=== PATIENT | female | born 1980 | race Caucasian/White ===

== ENCOUNTER 2016-06-27 18:51 | Emergency (ER) | payer OTHER ==
[~2016-06-27 18:51] MED LIST: ANAPROX DS550 MG PO; AZO; BACTRIM DS TAB1 EAC2 PO; BACTRIM DS TABL1 TAB PO; BACTRIM DS1 TA1 PO; BCP; BENTYL20 MG PO; BRETHINE2.5 MG; CIPRO500 MG PO; COMPAZINE10 M PO; CYSTEX PLUS TA1 EACH PO; DETROL LA4 MG PO; DIAZEPAM5 M; DICLOFENAC SODI75 MG; ELMIRON100 MG PO; FLAGYL500 M1 PO; IBUPROFEN200 M2 PO; INDOCIN25 MG; KEFLEX500 MG PO; LEVAQUIN250 MG; LEVAQUIN250 MG PO; LEXAPRO10 MG; LEXAPRO10 MG PO; LORTAB 5/500 TA1 TAB PO; MACROBID 100 M100 M1 PO; MACROBID 100 M100 MG PO; MACRODANTIN100 M1 PO; MACRODANTIN25 MG; MACRODANTIN50 M2 PO; MAXALT MLT10 MG/TAB; NORCO 10/325 TA1 TAB PO; NORCO 5-325 TA1 EACH PO; NORCO 5/325 TAB1 TAB PO; ORTHO EVRA1 PATCH.WK; ORTHO TRI-7 DAYS X PO; ORTHO TRI-7 DAYSX 3 PO; OSTEO BI-FLEX1 EAC5 PO; OXYCODONE/APAP; PERCOCET 5-3251 EACH PO; PERCOCET 5/3251 TAB PO; PHENERGAN25 MG PO; PRENATAL PO; PRENATAL VITAMI1 TAB; PRENATAL1 TAB; PROCARDIA; PROCARDIA10 MG; PYRIDIUM100 M1 PO; PYRIDIUM100 M2 PO; PYRIDIUM100 MG; PYRIDIUM100 MG PO; PYRIDIUM200 M2 PO; PYRIDIUM200 MG PO; TOPICORT TP; TRAMADOL HCL50 MG; TRAMADOL HCL50 MG PO; TYLENOL W/CODEI1 TAB; ULTRAM50 M1 PO; ULTRAM50 MG; ULTRAM50 MG PO; VALIUM5 MG PO; VESICARE5 M1 PO; VITAMIN C500 M3 PO; VITAMIN D10000 UNI1 PO; VITAMIN E PO; VOLTAREN75 MG PO; [UNRECOGNIZED DRUG - OTHER] PO
[2016-06-27 19:59] LABS: BASO % 0.6 % (0-2); EOS % 0.6 % (0-7); HCT-HEMATOCRIT 36.1 % (34.0-49.0); HGB-HEMOGLOBIN 11.3 gm/dl (12.0-15.5); IMMATURE GRANULOCYTES ABSOLUTE 0.01 tho/cmm (0-0.03); IMMATURE GRANULOCYTES PERCENT 0.2 % (0-0.3); LYMPH % 28.2 % (20-45); LYMPH ABSOLUTE COUNT 1.9 tho/cmm (0.8-4.5); MCH (MEAN CORPUSCULAR HGB) 25.8 pg (28.0-32.0); MCHC MEAN CORPUSCULAR HGB CONC 31.3 % (32.0-36.0); MCV (MEAN CELL VOLUME) 82.4 fl (82.0-96.0); MEAN PLATELET VOLUME 8.4 cmc (9.4-12.4); MONO % 8.5 % (0-12); MONOCYTE ABSOLUTE COUNT 0.6 tho/cmm (0.0-1.2); NEUTROPHIL ABSOLUTE COUNT 4.1 tho/cmm (1.6-8.0); NEUTROPHIL-AUTOMATED 4.1 tho/cmm (1.6-8.0); NEUTROPHILS % 61.9 % (40-80); PLATELET COUNT 365 tho/cmm (150-450); RED BLOOD COUNT 4.38 mil/cmm (4.00-5.20); WHITE BLOOD COUNT 6.6 tho/cmm (4.0-10.0)
[2016-06-27 20:16] LABS: ALB/GLOB RATIO 1.1 (0.8-2.0); ALKALINE PHOSPHATASE 54 U/L (33-138); ALT/SGPT 17 U/L (12-78); ANION GAP 13 mmol/L (0-20); AST/SGOT 18 U/L (10-40); BILIRUBIN,TOTAL 0.3 mg/dl (0-1.5); BLOOD UREA NITROGEN 16 mg/dl (6-24); CALCIUM 8.9 mg/dl (8.5-10.5); CARBON DIOXIDE-VENOUS 20 mmol/L (22-32); CHLORIDE 107 mmol/l (96-110); CREATININE 0.61 mg/dl (0.50-1.10); GLUCOSE 81 mg/dL (70-110); LIPASE 87 U/L (73-393); POTASSIUM 3.2 mmol/L (3.7-5.1); SODIUM 137 mmol/L (135-145); eGFR VALUE FOR BLACK >90 mL/Min
[2016-06-27 20:18] LABS: C-REACTIVE PROTEIN <0.3 mg/dl (0-0.9)
[2016-06-27 20:37] LABS: URINE BILIRUBIN NEGATIVE (NEG); URINE BLOOD MODERATE (NEG); URINE GLUCOSE (UA) NEGATIVE (NEG); URINE KETONE MODERATE (NEG); URINE LEUKOCYTE ESTERASE NEGATIVE (NEG); URINE NITRITE NEGATIVE (NEG); URINE PROTEIN MODERATE (NEG); URINE SPECIFIC GRAVITY 1.015 (1.003-1.030)
[2016-06-27 20:39] LABS: URINE APPEARANCE HAZY; URINE COLOR YELLOW
[2016-06-27 20:45] LABS: URINE MUCUS 3+
[2016-06-27] MEDS ORDERED: ULTRAM50 M1 PO (22:05)
[2016-06-27] MEDS ORDERED: ZOFRAN ODT4 MG PO (22:05)
[2016-10-21] MEDS ORDERED: ULTRAM50 M1 PO (13:37)
[2016-12-06] MEDS ORDERED: ULTRAM50 M1 PO (15:03)
[2016-12-06] MEDS ORDERED: DOXYCYCLINE HY100 M3 PO (17:52)
[2016-12-06] MEDS ORDERED: PERCOCET 5-3251 EACH PO (17:52)
[2016-12-17] MEDS ORDERED: ZANAFLEX4 M2 PO (17:45)
[2016-12-17] MEDS ORDERED: PERCOCET 5-3251 EACH PO (17:46)
[2016-12-17] MEDS ORDERED: TYLENOL325 M2 PO (17:47)
[2016-12-17] MEDS ORDERED: NEURONTIN300 M1 PO (17:48)
[2016-12-17] MEDS ORDERED: MELATONIN3 M4 PO (17:51)
== END 2016-06-27 22:07 ==
LOC: EDMED 18:51
PROVIDERS: Nurse Practitioner Family
DX: R10.31 Right lower quadrant pain (principal); R11.0 Nausea; E78.5 Hyperlipidemia, unspecified; Z91.040 Latex allergy status; Z88.1 Allergy status to other antibiotic agents; Z91.09 Other allergy status, other than to drugs and biological substances; Z88.8 Allergy status to other drugs, medicaments and biological substances; Z90.49 Acquired absence of other specified parts of digestive tract; Z98.51 Tubal ligation status
CPT/HCPCS: J2270; J2405; J7030; Q9967

== ENCOUNTER 2016-08-08 16:26 | Emergency (ER) | payer OTHER ==
[~2016-08-08 16:26] MED LIST changes: +ZOFRAN ODT4 MG PO
[2016-08-08] MEDS ORDERED: ULTRAM50 M1 PO (16:48)
[2016-08-08] MEDS ORDERED: VITAMIN D31000 UNI3 PO (16:49)
[2016-08-08] MEDS ORDERED: SLOW FE142 M1 PO (16:49)
[2016-08-08] MEDS ORDERED: NORCO 5-325 TA1 EACH PO (18:13)
[2016-10-21] MEDS ORDERED: ULTRAM50 M1 PO (13:37)
[2016-12-06] MEDS ORDERED: ULTRAM50 M1 PO (15:03)
[2016-12-06] MEDS ORDERED: DOXYCYCLINE HY100 M3 PO (17:52)
[2016-12-06] MEDS ORDERED: PERCOCET 5-3251 EACH PO (17:52)
[2016-12-17] MEDS ORDERED: ZANAFLEX4 M2 PO (17:45)
[2016-12-17] MEDS ORDERED: PERCOCET 5-3251 EACH PO (17:46)
[2016-12-17] MEDS ORDERED: TYLENOL325 M2 PO (17:47)
[2016-12-17] MEDS ORDERED: NEURONTIN300 M1 PO (17:48)
[2016-12-17] MEDS ORDERED: MELATONIN3 M4 PO (17:51)
== END 2016-08-08 18:26 ==
LOC: EDMED 16:26
DX: S90.02XA Contusion of left ankle, initial encounter (principal); V49.50XA Passenger injured in collision with unspecified motor vehicles in traffic accident, initial encounter; Y92.410 Unspecified street and highway as the place of occurrence of the external cause